=== PATIENT | male | born 1990 | race Caucasian/White ===

== ENCOUNTER 2021-02-02 07:08 | Emergency (ER) | payer BC ==
[2021-02-02] MEDS ORDERED: diphenhydrAMINE 50 MG CAP ONE (08:00)
== END 2021-02-02 08:19 | disposition home or self-care (01) ==
LOC: ERS 07:08
DX: S80.862A Insect bite (nonvenomous), left lower leg, initial encounter (principal); S80.861A Insect bite (nonvenomous), right lower leg, initial encounter; S30.861A Insect bite (nonvenomous) of abdominal wall, initial encounter; R06.02 Shortness of breath; F17.210 Nicotine dependence, cigarettes, uncomplicated; W57.XXXA Bitten or stung by nonvenomous insect and other nonvenomous arthropods, initial encounter
CPT/HCPCS: 99282

== ENCOUNTER 2021-02-03 19:50 | Emergency (ER) | payer BC | END 2021-02-03 21:10 | disposition home or self-care (01) | LOC: ERS 19:50 | DX: S90.862A Insect bite (nonvenomous), left foot, initial encounter (principal); F17.210 Nicotine dependence, cigarettes, uncomplicated; W57.XXXA Bitten or stung by nonvenomous insect and other nonvenomous arthropods, initial encounter | CPT/HCPCS: 99281 ==

== ENCOUNTER 2021-02-25 20:31 | Emergency (ER) | payer BC ==
[2021-02-25 20:54] LABS: Bilirubin Negative (Negative); Blood, Urine Negative (Negative); Clarity Clear (Clear); Glucose, Urine (Dipstick) Normal (Negative); Ketone, Urine Negative (Negative); Leukocyte Negative Leu/uL (Negative); Nitrite Negative (Negative); Protein, Urine (Dipstick) 10 mg/dL (Neg-Trace); Specific Gravity, Urine 1.031 (1.002-1.036); Urobilinogen Normal mg/dL (Less than 2)
[2021-02-25 21:28] LABS: #Eosinphils 0.1 thou/uL (0.0-0.7); #Lymphocytes 2.1 thou/uL (1.20-3.40); #Monocytes 0.5 thou/uL (0.11-0.59); #Neutrophils 2.6 thou/uL (1.40-6.50); %Basophils 0.2 % (0.0-1.0); %Eosinophils 1.9 % (0.0-10.0); %Lymphocytes 39.4 % (21.0-51.0); %Monocytes 8.7 % (0.0-10.0); %Neutrophils 49.9 % (42.0-75.0); Hemoglobin 14.3 g/dL (14.0-18.0); Mean Corpuscular HGB CONC 33.6 g/dL (32.0-36.0); Mean Corpuscular Hemoglobin 29.7 pg (27.0-31.0); Mean Corpuscular Volume 88.6 fL (78.0-98.0); Mean Platelet Volume 7.4 fL (7.4-10.4); Platelet Count 150 thou/uL (130-400); RBC Distribution Width 11.4 % (11.5-14.5); Red Blood Cell (RBC) Count 4.82 mill/uL (4.70-6.10); White Blood Cell (WBC) Count 5.2 thou/uL (4.8-10.8)
[2021-02-25 21:55] LABS: Anion Gap 12 mmol/L (10-20); BUN (Urea Nitrogen) 12 mg/dL (8.9-20.6); Calc. Creatinine Clearance 0 mL/min (70-130); Calcium 9.3 mg/dL (7.8-10.44); Carbon Dioxide 25 mmol/L (22-29); Chloride 107 mmol/L (98-107); Glucose 90 mg/dL (70-105); Lipase 29 U/L (8-78); Sodium 140 mmol/L (136-145)
== END 2021-02-25 23:00 | disposition home or self-care (01) ==
LOC: ERS 20:31
DX: R10.9 Unspecified abdominal pain (principal)
CPT/HCPCS: 36415; 71045; 80048; 81003; 83690; 84484; 85025; 93005